=== PATIENT | female | born 1955 | race Caucasian/White ===

== ENCOUNTER 2016-07-06 15:52 | Emergency (ER) | payer OTHER ==
--- NOTE | 2016-07-06 20:50 | DIAGNOSTIC IMAGING REPORT ---
PROCEDURE: XR CHEST 2 VIEW INDICATION: FEVER, initial encounter TECHNIQUE: PA and lateral view. COMPARISON: None. FINDINGS: Mild left bibasilar atelectasis. Heart size, mediastinum and pulmonary vessels are normal. Tortuous aorta. Hiatal hernia. Bony thorax is unremarkable. IMPRESSION: 1. Mild bibasilar atelectasis 2. Hiatal hernia
--- NOTE | 2016-07-06 21:09 | ED ORDER SUMMARY ---
..... Patient: NAILA MARTINS OrderSheet [facility] VisitID: [id number] [address] [place] [address] 60y, F Registration Date/Time: 07/06/2016 ORDER SHEET Weight: 86.1 kg (stated) Allergies: No Known Drug Allergy GENERAL ORDERS: Chest 2V Urgent (20:05 07/06/2016 Aide ELIZONDO) (Ack 20:09 TBergley) (20:19 TLewis R.N.) Rapid Influenza Screen (Nasal Pharyngeal) (swab) Urgent (20:06 07/06/2016 Aide ELIZONDO) (Ack 20:09 TBergley) (20:19 TLewis R.N.) Culture, Strep Screen (I BOT THIS SAMPLE) Urgent (20:06 07/06/2016 Aide ELIZONDO) (Ack 20:09 TBergley) (20:13 TLewis R.N.) MEDICATION ORDERS: Acetaminophen PO 1,000 mg (NOW) (20:12 07/06/2016 Aide ELIZONDO) (20:19 TLewis R.N.) Azithromycin PO 500 mg (NOW) (20:43 07/06/2016 Adie ELIZONDO) (20:48 TLewis R.N.) IV FLUIDS: ORDER SHEET NOTES: [Electronically signed by Wilfredo Rodríguez R.N. (21:21 07/06/2016)] [Electronically signed by Federico Purcell MD (22:54 07/08/2016)] [Electronically locked/signed by Wilfredo Rodríguez R.N. (21:21 07/06/2016)]
--- NOTE | 2016-07-06 21:09 | ED CLINICAL REPORT ---
Clinical Report - Physicians/Mid Levels [facility] [address] [place] [address] 07/06/2016 15:56 Patient: NAILA MARTINS Time Seen: 19:46. Arrived- By private vehicle. Historian- patient. HISTORY OF PRESENT ILLNESS Chief Complaint: COUGH, FEVER and CHILLS. This started several weeks ago cough. Several days ago subjective fever; Pt was recently brought to treatment area from triage where she had been for some time. She has a marked cough with chest pain with the cough and is still present. It was gradual in onset. The illness is described as moderate. The patient has had scant amounts of sputum, a cough, a sore throat, nasal congestion and fever. She has had chills. No difficulty breathing or ear pain. She has had chest discomfort (with respiration). Similar symptoms previously: None. Recent medical care: Not recently seen/assessed. REVIEW OF SYSTEMS The patient has had a sore throat, a subjective fever and chills. No eye irritation, ear pain, abdominal pain, black stools or bloody stools. No diarrhea, nausea, vomiting, urinary frequency or back pain. No skin rash or difficulty with urination. PAST HISTORY PCP: None Ops: Unknown abdominal surgery PROBLEMS: Arthritis. Hypertension. SOCIAL HISTORY Never smoker. ADDITIONAL NOTES The nursing notes have been reviewed. PHYSICAL EXAM Vital Signs: 07/06/2016 21:18 BP: 123/56. HR: 75. RR: 15. O2 saturation: 96%. 07/06/2016 20:47 BP: 136/66. HR: 80. RR: 15. O2 saturation: 95%. 07/06/2016 19:16 BP: 154/80. HR: 88. RR: 18. O2 saturation: 100%. 07/06/2016 17:13 BP: 144/94. HR: 85. RR: 18. O2 saturation: 95%. Temp: 98.4 F. Appearance: Alert. No acute distress. Eyes: Eyes normal inspection. ENT: Pharynx normal. Neck: Normal inspection. Neck supple. Respiratory: Rhonchi present in the left lung base posteriorly. No rales or wheezes. Abdomen: Soft and nontender. Skin: Skin warm. Normal skin color. No rash. Extremities: Extremities exhibit normal ROM. No lower extremity edema. LABS, X-RAYS, AND EKG Chest X-ray: (atelectasis L base plus HH). The X-rays were interpreted by the radiologist and contemporaneously by me and discussed with the radiologist. Laboratory Tests: Culture, Strep Screen: (DEYSI: 07/06/2016 20:00) ( MsgRcvd 07/06/2016 20:53) Final results Specimen Comment: I BOT THIS SAMPLE Test Result Flag Units (Reference) RAPID STREP SCREEN - THROAT DATE: 07/06/16 NEGATIVE SCREEN: RAPID STREP SCREEN NEGATIVE; CONFIRMATION TO FOLLOW Rapid Influenza Screen: (DEYSI: 07/06/2016 20:20) ( MsgRcvd 07/06/2016 20:50) Final results SPECIMEN DESCRIPTION: SWAB Test Result Flag Units (Reference) RAPID INFLUENZA SCREEN DATE: 07/06/16 INFLUENZA A: NEGATIVE SCREEN FOR INFLUENZA A INFLUENZA B: NEGATIVE SCREEN FOR INFLUENZA B . PROGRESS AND PROCEDURES Course of Care: 21:03 07/06/16. Tests back and negative. Lung exam shows localized rhonchi at the site of the atelectasis on CXR. Disposition: Discharged. Condition: stable. CLINICAL IMPRESSION Pneumonia. INSTRUCTIONS (I THINK YOU HAVE AN INFECTION AT THE BOTTOM OF YOUR LEFT LUNG IMMEDIATE RECHECK IF BREATHING PROBLEMS INCREASE OR YOU GET WORSE THE STREP SCREEN AND INFLUENZA SCREENS ARE NEGATIVE). Prescription Medications: Albuterol HFA oral inhaler: inhale 1-2 puffs every 4 hours. Dispense one (1) unit. (PRN COUGH) Zithromax 250 mg tablets: take 1 orally today, every day for the next 4 days. (FIRST DOSE GIVEN IN ED ON 07/06) Understanding of the discharge instructions verbalized by patient and family. Follow-up with: [facility], , , [address], [facility], [id number] (Electronically signed by Federico Purcell MD 07/08/2016 22:54)
--- NOTE | 2016-07-06 21:09 | ED NURSING NOTES ---
Clinical Report - Nurses [facility] [place] [place] [address] 07/06/2016 15:56 Patient: NAILA MARTINS TRIAGE Triage time 17:13. Chief Complaint: COUGH, FEVER and SORE THROAT. Alert. --17:17 Nicole Muro R.N. 17:13 07/06/16. BP: 144/94. HR: 85. RR: 18. O2 saturation: 95%. Temp: 98.4 F. --17:17 Nicole Muro R.N. Acuity: LEVEL 3. --19:22 Wilfredo Rodríguez R.N. Weight: 86.1 kg stated. Height/Length: 62 inches Per Patient. BMI: 34.8. --17:15 Nicole Muro R.N. Medications None. --19:20 Wilfredo Rodríguez R.N. Medication/allergy information source: the patient's family. --19:22 Wilfredo Rodríguez R.N. Allergies No Known Drug Allergy. --19:20 Wilfredo Rodríguez R.N. History Arrived by private vehicle. Historian: family. Accompanied by family. Primary physician (none). Onset. (2 weeks ago, and now having chest discomfort). Treatment ASSISTANT BUYER: None. --17:17 Nicole Muro R.N. PAST MEDICAL HX: Immunizations: (no). SOCIAL HX: Never smoker. No alcohol use or drug use. --19:22 Wilfredo Rodríguez R.N. PROBLEMS: Arthritis. Hypertension. --19:21 Wilfredo Rodríguez R.N. Interventions ID band on patient. To treatment room. --19:22 Wilfredo Rodríguez R.N. PHYSICAL ASSESSMENT GENERAL / NEURO / PSYCH: Alert. Oriented X 4. Appears in no acute distress. HEENT: Pupils equal, round and reactive to light. Ears within normal limits. Nares within normal limits. Mouth within normal limits upon inspection. Pharynx within normal limits. Voice within normal limits. ( Pt has a sore throat). Mucous membranes are pink. RESPIRATORY: Respirations not labored. Nonproductive cough. Breath sounds within normal limits. CVS: Normal sinus rhythm noted. Capillary refill less than 2 seconds. SKIN: Skin is warm and dry. Normal skin turgor. --19:18 Wilfredo Rodríguez R.N. NURSING PROGRESS NOTES 19:16 07/06/16. BP: 154/80. HR: 88. RR: 18. O2 saturation: 100%. Pain level now 5/10. --19:17 Wilfredo Rodríguez R.N. The plan of care for this patient has been created. Monitoring of patient in place. Head of bed elevated. Two patient identifiers checked. Call light placed in reach. Side rails up x 1. Bed placed in lowest position. Brakes of bed on. ( Pt is having chest discomfort when she coughs.). --19:17 Wilfredo Rodríguez R.N. ( Family is at bedside and the pt is wearing a mask.). --19:22 Wilfredo Rodríguez R.N. 20:19 07/06/2016 Acetaminophen (APAP) PO 1000 mg given. Allergies verified and confirmed 5 rights. --20:19 Wilfredo Rodríguez R.N. Patient transported to radiology. (20:19). --20:19 Wilfredo Rodríguez R.N. 20:47 07/06/16. BP: 136/66. HR: 80. RR: 15. O2 saturation: 95%. Pain level now 4/10. --20:48 Wilfredo Rodríguez R.N. 20:48 07/06/2016 Azithromycin PO 500 mg given. Allergies verified and confirmed 5 rights. --20:48 Wilfredo Rodríguez R.N. DISPOSITION / DISCHARGE Departure time: 2119. Condition at departure: unchanged. No learning barriers present. Discharge instructions provided and reviewed with the patient. Reviewed warnings. Reviewed medication(s). Treatments reviewed. Reviewed referrals ([facility]). Patient verbalized understanding. Written instructions provided in Setswana. The patient was discharged by the physician. She was discharged home and accompanied by family. She left the Emergency Department ambulatory and via private vehicle. Family member driving. --21:21 Wilfredo Rodríguez R.N. 21:18 07/06/16. BP: 123/56. HR: 75. RR: 15. O2 saturation: 96%. Pain level now 08/09. --21:21 Wilfredo Rodríguez R.N. Locked/Released at 07/06/2016 21:21 by Wilfredo Rodríguez R.N.
--- NOTE | 2016-07-06 21:09 | ED NURSING NOTES ---
Clinical Report - Nurses [facility] [place] [address] 07/06/2016 15:56 Patient: NAILA MARTINS TRIAGE Triage time 17:13. Chief Complaint: COUGH, FEVER and SORE THROAT. Alert. --17:17 Nicole Muro R.N. 17:13 07/06/16. BP: 144/94. HR: 85. RR: 18. O2 saturation: 95%. Temp: 98.4 F. --17:17 Nicole Muro R.N. Acuity: LEVEL 3. --19:22 Wilfredo Rodríguez R.N. Weight: 86.1 kg stated. Height/Length: 62 inches Per Patient. BMI: 34.8. --17:15 Nicole Muro R.N. Medications None. --19:20 Wilfredo Rodríguez R.N. Medication/allergy information source: the patient's family. --19:22 Wilfredo Rodríguez R.N. Allergies No Known Drug Allergy. --19:20 Wilfredo Rodríguez R.N. History Arrived by private vehicle. Historian: family. Accompanied by family. Primary physician (none). Onset. (2 weeks ago, and now having chest discomfort). Treatment DIRECTOR OF SURGERY: None. --17:17 Nicole Muro R.N. PAST MEDICAL HX: Immunizations: (no). SOCIAL HX: Never smoker. No alcohol use or drug use. --19:22 Wilfredo Rodríguez R.N. PROBLEMS: Arthritis. Hypertension. --19:21 Wilfredo Rodríguez R.N. Interventions ID band on patient. To treatment room. --19:22 Wilfredo Rodríguez R.N. PHYSICAL ASSESSMENT GENERAL / NEURO / PSYCH: Alert. Oriented X 4. Appears in no acute distress. HEENT: Pupils equal, round and reactive to light. Ears within normal limits. Nares within normal limits. Mouth within normal limits upon inspection. Pharynx within normal limits. Voice within normal limits. ( Pt has a sore throat). Mucous membranes are pink. RESPIRATORY: Respirations not labored. Nonproductive cough. Breath sounds within normal limits. CVS: Normal sinus rhythm noted. Capillary refill less than 2 seconds. SKIN: Skin is warm and dry. Normal skin turgor. --19:18 Wilfredo Rodríguez R.N. NURSING PROGRESS NOTES 19:16 07/06/16. BP: 154/80. HR: 88. RR: 18. O2 saturation: 100%. Pain level now 5/10. --19:17 Wilfredo Rodríguez R.N. The plan of care for this patient has been created. Monitoring of patient in place. Head of bed elevated. Two patient identifiers checked. Call light placed in reach. Side rails up x 1. Bed placed in lowest position. Brakes of bed on. ( Pt is having chest discomfort when she coughs.). --19:17 Wilfredo Rodríguez R.N. ( Family is at bedside and the pt is wearing a mask.). --19:22 Wilfredo Rodríguez R.N. 20:19 07/06/2016 Acetaminophen (APAP) PO 1000 mg given. Allergies verified and confirmed 5 rights. --20:19 Wilfredo Rodríguez R.N. Patient transported to radiology. (20:19). --20:19 Wilfredo Rodríguez R.N. 20:47 07/06/16. BP: 136/66. HR: 80. RR: 15. O2 saturation: 95%. Pain level now 4/10. --20:48 Wilfredo Rodríguez R.N. 20:48 07/06/2016 Azithromycin PO 500 mg given. Allergies verified and confirmed 5 rights. --20:48 Wilfredo Rodríguez R.N. DISPOSITION / DISCHARGE Departure time: 2119. Condition at departure: unchanged. No learning barriers present. Discharge instructions provided and reviewed with the patient. Reviewed warnings. Reviewed medication(s). Treatments reviewed. Reviewed referrals ([facility]). Patient verbalized understanding. Written instructions provided in Upper Sorbian. The patient was discharged by the physician. She was discharged home and accompanied by family. She left the Emergency Department ambulatory and via private vehicle. Family member driving. --21:21 Wilfredo Rodríguez R.N. 21:18 07/06/16. BP: 123/56. HR: 75. RR: 15. O2 saturation: 96%. Pain level now 08/09. --21:21 Wilfredo Rodríguez R.N. Locked/Released at 07/06/2016 21:21 by Wilfredo Rodríguez R.N.
--- NOTE | 2016-07-06 21:09 | ED CLINICAL REPORT ---
Clinical Report - Physicians/Mid Levels [facility] [address] [place] [address] 07/06/2016 15:56 Patient: NAILA MARTINS Time Seen: 19:46. Arrived- By private vehicle. Historian- patient. HISTORY OF PRESENT ILLNESS Chief Complaint: COUGH, FEVER and CHILLS. This started several weeks ago cough. Several days ago subjective fever; Pt was recently brought to treatment area from triage where she had been for some time. She has a marked cough with chest pain with the cough and is still present. It was gradual in onset. The illness is described as moderate. The patient has had scant amounts of sputum, a cough, a sore throat, nasal congestion and fever. She has had chills. No difficulty breathing or ear pain. She has had chest discomfort (with respiration). Similar symptoms previously: None. Recent medical care: Not recently seen/assessed. REVIEW OF SYSTEMS The patient has had a sore throat, a subjective fever and chills. No eye irritation, ear pain, abdominal pain, black stools or bloody stools. No diarrhea, nausea, vomiting, urinary frequency or back pain. No skin rash or difficulty with urination. PAST HISTORY PCP: None Ops: Unknown abdominal surgery PROBLEMS: Arthritis. Hypertension. SOCIAL HISTORY Never smoker. ADDITIONAL NOTES The nursing notes have been reviewed. PHYSICAL EXAM Vital Signs: 07/06/2016 21:18 BP: 123/56. HR: 75. RR: 15. O2 saturation: 96%. 07/06/2016 20:47 BP: 136/66. HR: 80. RR: 15. O2 saturation: 95%. 07/06/2016 19:16 BP: 154/80. HR: 88. RR: 18. O2 saturation: 100%. 07/06/2016 17:13 BP: 144/94. HR: 85. RR: 18. O2 saturation: 95%. Temp: 98.4 F. Appearance: Alert. No acute distress. Eyes: Eyes normal inspection. ENT: Pharynx normal. Neck: Normal inspection. Neck supple. Respiratory: Rhonchi present in the left lung base posteriorly. No rales or wheezes. Abdomen: Soft and nontender. Skin: Skin warm. Normal skin color. No rash. Extremities: Extremities exhibit normal ROM. No lower extremity edema. LABS, X-RAYS, AND EKG Chest X-ray: (atelectasis L base plus HH). The X-rays were interpreted by the radiologist and contemporaneously by me and discussed with the radiologist. Laboratory Tests: Culture, Strep Screen: (DEYSI: 07/06/2016 20:00) ( MsgRcvd 07/06/2016 20:53) Final results Specimen Comment: I BOT THIS SAMPLE Test Result Flag Units (Reference) RAPID STREP SCREEN - THROAT DATE: 07/06/16 NEGATIVE SCREEN: RAPID STREP SCREEN NEGATIVE; CONFIRMATION TO FOLLOW Rapid Influenza Screen: (DEYSI: 07/06/2016 20:20) ( MsgRcvd 07/06/2016 20:50) Final results SPECIMEN DESCRIPTION: SWAB Test Result Flag Units (Reference) RAPID INFLUENZA SCREEN DATE: 07/06/16 INFLUENZA A: NEGATIVE SCREEN FOR INFLUENZA A INFLUENZA B: NEGATIVE SCREEN FOR INFLUENZA B . PROGRESS AND PROCEDURES Course of Care: 21:03 07/06/16. Tests back and negative. Lung exam shows localized rhonchi at the site of the atelectasis on CXR. Disposition: Discharged. Condition: stable. CLINICAL IMPRESSION Pneumonia. INSTRUCTIONS (I THINK YOU HAVE AN INFECTION AT THE BOTTOM OF YOUR LEFT LUNG IMMEDIATE RECHECK IF BREATHING PROBLEMS INCREASE OR YOU GET WORSE THE STREP SCREEN AND INFLUENZA SCREENS ARE NEGATIVE). Prescription Medications: Albuterol HFA oral inhaler: inhale 1-2 puffs every 4 hours. Dispense one (1) unit. (PRN COUGH) Zithromax 250 mg tablets: take 1 orally today, every day for the next 4 days. (FIRST DOSE GIVEN IN ED ON 07/06) Understanding of the discharge instructions verbalized by patient and family. Follow-up with: [facility], , , [address], [facility], [address] (Electronically signed by Federioc Purcell MD 07/08/2016 22:54)
--- NOTE | 2016-07-06 21:09 | ED ORDER SUMMARY ---
..... Patient: NAILA MARTINS OrderSheet [facility] VisitID: [id number] [address] [place] [address] 60y, F Registration Date/Time: 07/06/2016 ORDER SHEET Weight: 86.1 kg (stated) Allergies: No Known Drug Allergy GENERAL ORDERS: Chest 2V Urgent (20:05 07/06/2016 Aide ELIZONDO) (Ack 20:09 TBergley) (20:19 TLewis R.N.) Rapid Influenza Screen (Nasal Pharyngeal) (swab) Urgent (20:06 07/06/2016 Aide ELIZONDO) (Ack 20:09 TBergley) (20:19 TLewis R.N.) Culture, Strep Screen (I BOT THIS SAMPLE) Urgent (20:06 07/06/2016 Aide ELIZONDO) (Ack 20:09 TBergley) (20:13 TLewis R.N.) MEDICATION ORDERS: Acetaminophen PO 1,000 mg (NOW) (20:12 07/06/2016 Aide ELIZONDO) (20:19 TLewis R.N.) Azithromycin PO 500 mg (NOW) (20:43 07/06/2016 Aide ELIZONDO) (20:48 TLewis R.N.) IV FLUIDS: ORDER SHEET NOTES: [Electronically signed by Wilfredo Rodríguez R.N. (21:21 07/06/2016)] [Electronically signed by Federico Purcell MD (22:54 07/08/2016)] [Electronically locked/signed by Wilfredo Rodríguez R.N. (21:21 07/06/2016)]
--- NOTE | 2016-07-08 22:54 | ED MAR SUMMARY ---
..... Medication Administration Record [facility] [address] [place] [place] [address] Patient: NAILA MARTINS Visit ID: [id number] 60y, F Weight: 86.1 kg Height/Length: 62 in BMI: 34.8 ALLERGIES: No Known Drug Allergy Given 20:19 07/06/2016 Wilfredo Rodríguez R.N. Medication Administered: ACETAMINOPHEN [PO] (APAP), Dose: 1000 mg PO. Medication Ordered: Acetaminophen PO 1,000 mg (NOW). Given 20:48 07/06/2016 Wilfredo Rodríguez R.N. Medication Administered: AZITHROMYCIN [PO], Dose: 500 mg PO. Medication Ordered: Azithromycin PO 500 mg (NOW).
--- NOTE | 2016-07-08 22:54 | ED MAR SUMMARY ---
..... Medication Administration Record [facility] [address] [place] [address] Patient: NAILA MARTINS Visit ID: [id number] 60y, F Weight: 86.1 kg Height/Length: 62 in BMI: 34.8 ALLERGIES: No Known Drug Allergy Given 20:19 07/06/2016 Wilfredo Rodríguez R.N. Medication Administered: ACETAMINOPHEN [PO] (APAP), Dose: 1000 mg PO. Medication Ordered: Acetaminophen PO 1,000 mg (NOW). Given 20:48 07/06/2016 Wilfredo Rodríguez R.N. Medication Administered: AZITHROMYCIN [PO], Dose: 500 mg PO. Medication Ordered: Azithromycin PO 500 mg (NOW).
--- NOTE | 2016-07-08 22:54 | ED DISCHARGE INSTRUCTIONS ---
Patient: NAILA MARTINS General Instructions [facility] VisitID: [id number] [address] [place] [address] 60y, F Registration Date/Time: 07/06/2016 Pneumonia. INSTRUCTIONS (I THINK YOU HAVE AN INFECTION AT THE BOTTOM OF YOUR LEFT LUNG IMMEDIATE RECHECK IF BREATHING PROBLEMS INCREASE OR YOU GET WORSE THE STREP SCREEN AND INFLUENZA SCREENS ARE NEGATIVE). Prescription Medications: Albuterol HFA oral inhaler: inhale 1-2 puffs every 4 hours. Dispense one (1) unit. (PRN COUGH) Zithromax 250 mg tablets: take 1 orally today, every day for the next 4 days. (FIRST DOSE GIVEN IN ED ON 07/06) Understanding of the discharge instructions verbalized by patient and family. Follow-up with: [facility], , , [address], [place], [address] ADDITIONAL INFORMATION Pneumonia (Adult) Pneumonia is an infection deep within the lung, in the small air sacs (alveoli). It may be due to a virus or bacteria and is usually treated with an antibiotic. Severe cases require treatment in the hospital. Milder cases can be treated at home. Symptoms usually start to improve during the first2 days of treatment. Home Care: Rest at home for the first 23 days or until you feel stronger. When resuming activity, dont let yourself become overly tired. Avoid exposure to cigarette smoke (yours or others). You may use acetaminophen (Tylenol) or ibuprofen (Motrin, Advil) to control fever or pain, unless another medicine was prescribed. [NOTE: If you have chronic liver or kidney disease or ever had a stomach ulcer or GI bleeding, talk with your doctor before using these medicines.] (Aspirin should never be used in anyone under 18 years of age who is ill with a fever. It may cause severe liver damage.) Your appetite may be poor so a light diet is fine. Keep well hydrated by drinking 68 glasses of fluids per day (water, sport drinks such as Gatorade, sodas without caffeine, juices, tea, soup, etc.). This will help loosen secretions in the lung, making it easier for you to cough up the phlegm (sputum). If you also have heart or kidney disease, check with your doctor before you drink extra amounts of fluids. Finish all antibiotic medicine prescribed, even if you are feeling better after a few days. Follow Up with your doctor in the next 23 days (or as advised) to be sure you are responding properly to the medicine. [NOTE: If you are age 65 or older, or if you have chronic lung disease (asthma, emphysema or COPD), we recommendthe pneumococcal vaccination and a yearlyinfluenzavaccination(flu-shot) every . Ask your doctor about this.] Get Prompt Medical Attention if any of the following occur: Not getting better within the first 48 hours of treatment Increasing shortness of breath or rapid breathing (over 25 breaths/minute) Coughing up blood or increasing chest pain with breathing Fever of 100.4F (38C) oral or higher, not better with fever medication Increasing weakness, dizziness or fainting Increasing thirst or dry mouth Sinus pain, headache or a stiff neck Chest pain not caused by coughing You have been given the following additional information: Pneumonia (Adult) (Electronically signed by Federico Purcell MD 07/08/2016 22:54)
--- NOTE | 2016-07-08 22:54 | ED DISCHARGE INSTRUCTIONS ---
Patient: NAILA MARTINS General Instructions [facility] VisitID: [id number] [address] [place] [address] 60y, F Registration Date/Time: 07/06/2016 Pneumonia. INSTRUCTIONS (I THINK YOU HAVE AN INFECTION AT THE BOTTOM OF YOUR LEFT LUNG IMMEDIATE RECHECK IF BREATHING PROBLEMS INCREASE OR YOU GET WORSE THE STREP SCREEN AND INFLUENZA SCREENS ARE NEGATIVE). Prescription Medications: Albuterol HFA oral inhaler: inhale 1-2 puffs every 4 hours. Dispense one (1) unit. (PRN COUGH) Zithromax 250 mg tablets: take 1 orally today, every day for the next 4 days. (FIRST DOSE GIVEN IN ED ON 07/06) Understanding of the discharge instructions verbalized by patient and family. Follow-up with: [facility], , , [address], [place], [address] ADDITIONAL INFORMATION Pneumonia (Adult) Pneumonia is an infection deep within the lung, in the small air sacs (alveoli). It may be due to a virus or bacteria and is usually treated with an antibiotic. Severe cases require treatment in the hospital. Milder cases can be treated at home. Symptoms usually start to improve during the first2 days of treatment. Home Care: Rest at home for the first 23 days or until you feel stronger. When resuming activity, dont let yourself become overly tired. Avoid exposure to cigarette smoke (yours or others). You may use acetaminophen (Tylenol) or ibuprofen (Motrin, Advil) to control fever or pain, unless another medicine was prescribed. [NOTE: If you have chronic liver or kidney disease or ever had a stomach ulcer or GI bleeding, talk with your doctor before using these medicines.] (Aspirin should never be used in anyone under 18 years of age who is ill with a fever. It may cause severe liver damage.) Your appetite may be poor so a light diet is fine. Keep well hydrated by drinking 68 glasses of fluids per day (water, sport drinks such as Gatorade, sodas without caffeine, juices, tea, soup, etc.). This will help loosen secretions in the lung, making it easier for you to cough up the phlegm (sputum). If you also have heart or kidney disease, check with your doctor before you drink extra amounts of fluids. Finish all antibiotic medicine prescribed, even if you are feeling better after a few days. Follow Up with your doctor in the next 23 days (or as advised) to be sure you are responding properly to the medicine. [NOTE: If you are age 65 or older, or if you have chronic lung disease (asthma, emphysema or COPD), we recommendthe pneumococcal vaccination and a yearlyinfluenzavaccination(flu-shot) every . Ask your doctor about this.] Get Prompt Medical Attention if any of the following occur: Not getting better within the first 48 hours of treatment Increasing shortness of breath or rapid breathing (over 25 breaths/minute) Coughing up blood or increasing chest pain with breathing Fever of 100.4F (38C) oral or higher, not better with fever medication Increasing weakness, dizziness or fainting Increasing thirst or dry mouth Sinus pain, headache or a stiff neck Chest pain not caused by coughing You have been given the following additional information: Pneumonia (Adult) (Electronically signed by Federico Purcell MD 07/08/2016 22:54)
--- NOTE | 2016-07-08 22:55 | ED MED RECONCILIATION SUMMARY ---
Patient: NAILA MARTINS Medication Reconciliation Report [facility] VisitID: [id number] [address] [place] [address] 60y, F Registration Date/Time: 07/06/2016 Weight: 86.1 kg Height/Length: 62 in. BMI: 34.8 ALLERGIES: No Known Drug Allergy The patient's Home Medications are listed below: NONE. The source(s) of the original Home Medication information: patient's family member The following Medications were given to the patient in the Emergency Department: Acetaminophen [PO] PO 1000 mg, administered: 07/06/2016 8:19:00 PM Azithromycin [PO] PO 500 mg, administered: 07/06/2016 8:48:00 PM The following Medications were prescribed to the patient: Albuterol HFA oral inhaler: inhale 1-2 puffs every 4 hours. Dispense one (1) unit.(PRN COUGH) -- Federico Purcell MD Zithromax 250 mg tablets: take 1 orally today, every day for the next 4 days.(FIRST DOSE GIVEN IN ED ON 07/06) -- Federico Purcell MD
--- NOTE | 2016-07-08 22:55 | ED MED RECONCILIATION SUMMARY ---
Patient: NAILA MARTINS Medication Reconciliation Report [facility] VisitID: [id number] [address] [place] [address] 60y, F Registration Date/Time: 07/06/2016 Weight: 86.1 kg Height/Length: 62 in. BMI: 34.8 ALLERGIES: No Known Drug Allergy The patient's Home Medications are listed below: NONE. The source(s) of the original Home Medication information: patient's family member The following Medications were given to the patient in the Emergency Department: Acetaminophen [PO] PO 1000 mg, administered: 07/06/2016 8:19:00 PM Azithromycin [PO] PO 500 mg, administered: 07/06/2016 8:48:00 PM The following Medications were prescribed to the patient: Albuterol HFA oral inhaler: inhale 1-2 puffs every 4 hours. Dispense one (1) unit.(PRN COUGH) -- Federico Purcell MD Zithromax 250 mg tablets: take 1 orally today, every day for the next 4 days.(FIRST DOSE GIVEN IN ED ON 07/06) -- Federico Purcell MD
== END 2016-07-06 21:20 | disposition home or self-care (01) ==
LOC: ED SRH 15:52
DX: J18.9 Pneumonia, unspecified organism (principal); R50.9 Fever, unspecified; I10 Essential (primary) hypertension
CPT/HCPCS: 90154; 90159; 90627; 91400